=== PATIENT | male | born 1955 | race Native Hawaiian/Other Pacific Islander ===

== ENCOUNTER → 2024-04-18 | Outpatient (CLI) | payer MEDICAID ==
[~2024-04-18] MED LIST: ALLO300T2; COLC0.6T; GLIP5TAB21; INDO50CA82; LISI-285; METF-370
[2024-04-18 07:32] LABS: Alanine Aminotransferase 13 U/L (7-40); Alkaline Phosphatase 54 U/L (46-116); Anion Gap 8 (5-15); Blood Urea Nitrogen 16 mg/dL (9-23); Carbon Dioxide 28 mmol/L (20-31); Chloride 99 mmol/L (98-107); Glucose 143 mg/dL (74-106); LDL Cholesterol 80 mg/dL (< 100); Potassium 4.1 mmol/L (3.5-5.1); Sodium 135 mmol/L (136-145); Triglycerides 78 mg/dL (< 150)
[2024-04-18 07:33] LABS: Albumin 4.3 g/dL (3.2-4.8); Aspartate Aminotransferase 31 U/L (13-40); Bilirubin, Total 0.9 mg/dL (0.2-1.0); Cholesterol 127 mg/dL (< 200); Creatine Kinase IFCC 385 U/L (46-171); HDL Cholesterol 38 mg/dL (40-59); Total Protein 6.9 g/dL (5.7-8.2)
[2024-04-18 08:36] LABS: Uric Acid 5.4 mg/dL (3.7-9.2)
== END | disposition home or self-care (01) ==
LOC: LAB 06:17
PROVIDERS: ATTEND Internal Medicine
DX: E11.69 Type 2 diabetes mellitus with other specified complication (principal); E78.5 Hyperlipidemia, unspecified; M10.9 Gout, unspecified; E03.9 Hypothyroidism, unspecified
CPT/HCPCS: 36415; 80053; 80061; 82043; 82550; 83036; 84436; 84443; 84550

== ENCOUNTER → 2024-09-07 | Outpatient (CLI) | payer MEDICAID ==
[2024-09-07 07:23] LABS: Creatinine, Urine 43.39 mg/dL (30.0-125.0)
[2024-09-07 07:27] LABS: Alanine Aminotransferase 16 U/L (7-40); Albumin 4.6 g/dL (3.2-4.8); Alkaline Phosphatase 69 U/L (46-116); Anion Gap 10 (5-15); Aspartate Aminotransferase 24 U/L (13-40); BUN/Creatinine Ratio 15.4 (10.0-20.0); Blood Urea Nitrogen 16 mg/dL (9-23); Calcium 9.8 mg/dL (8.7-10.4); Carbon Dioxide 26 mmol/L (20-31); Cholesterol 126 mg/dL (< 200); LDL Cholesterol 76 mg/dL (< 100); Potassium 3.6 mmol/L (3.5-5.1); Total Protein 7.3 g/dL (5.7-8.2); Triglycerides 40 mg/dL (< 150)
[2024-09-07 07:28] LABS: HDL Cholesterol 43 mg/dL (40-59)
[2024-09-07 07:30] LABS: Bilirubin, Total 1.3 mg/dL (0.2-1.0); Chloride 96 mmol/L (98-107); Glucose 137 mg/dL (74-106); Sodium 132 mmol/L (136-145)
[2024-09-07 07:43] LABS: Uric Acid 3.4 mg/dL (3.7-9.2)
== END | disposition home or self-care (01) ==
LOC: LAB 06:13
PROVIDERS: ATTEND Internal Medicine
DX: E11.69 Type 2 diabetes mellitus with other specified complication (principal); E78.5 Hyperlipidemia, unspecified; E03.5 Myxedema coma; M10.9 Gout, unspecified
CPT/HCPCS: 36415; 80053; 80061; 82043; 82570; 83036; 84436; 84443; 84480; 84550

== ENCOUNTER → 2024-09-27 | Outpatient (CLI) | payer MEDICAID | END | disposition home or self-care (01) | LOC: LAB 12:16 | PROVIDERS: ATTEND Internal Medicine | DX: J44.1 Chronic obstructive pulmonary disease with (acute) exacerbation (principal) | CPT/HCPCS: 87081 ==

== ENCOUNTER 2024-11-16 06:03 | Outpatient (CLI) | payer MEDICAID ==
[2024-11-16 06:18] LABS: Urine Bacteria None Seen /hpf (None Seen)
[2024-11-16 06:36] LABS: Urine Blood Negative /uL (Negative); Urine Clarity Clear (Clear); Urine Color Light-Yellow (Yellow); Urine Hyaline Cast FEW /lpf (0 - 2); Urine Protein, UAD 2+ (Negative); Urine Squamous Epithelial Cell None Seen /hpf (<5); Urine Urobilinogen Normal (Negative); Urine WBC 1 /HPF (0-3); Urine pH 7.5 (5.0-9.0)
[2024-11-16 07:10] LABS: Alanine Aminotransferase 16 U/L (7-40); Albumin 4.4 g/dL (3.2-4.8); Alkaline Phosphatase 44 U/L (46-116); Anion Gap 9 (5-15); Aspartate Aminotransferase 41 U/L (<34); BUN/Creatinine Ratio 15.5 (10.0-20.0); Bilirubin, Total 1.1 mg/dL (0.2-1.0); Blood Urea Nitrogen 18 mg/dL (9-23); Carbon Dioxide 28 mmol/L (20-31); Chloride 95 mmol/L (98-107); Glucose 177 mg/dL (74-106); Potassium 3.5 mmol/L (3.5-5.1); Sodium 132 mmol/L (136-145); Total Protein 6.6 g/dL (5.7-8.2)
== END 2024-11-16 17:00 | disposition home or self-care (01) ==
LOC: LAB 06:03
PROVIDERS: ATTEND Internal Medicine
DX: E11.69 Type 2 diabetes mellitus with other specified complication (principal); N39.0 Urinary tract infection, site not specified
CPT/HCPCS: 36415; 80053; 81001; 82043; 87086

== ENCOUNTER 2025-01-25 06:47 | Outpatient (CLI) | payer MEDICAID ==
[2025-01-25 07:42] LABS: Alanine Aminotransferase 14 U/L (7-40); Albumin 4.2 g/dL (3.2-4.8); Alkaline Phosphatase 57 U/L (46-116); Anion Gap 11 (5-15); BUN/Creatinine Ratio 14.2 (10.0-20.0); Bilirubin, Total 0.9 mg/dL (0.2-1.0); Blood Urea Nitrogen 17 mg/dL (9-23); Calcium 9.0 mg/dL (8.7-10.4); Carbon Dioxide 25 mmol/L (20-31); Cholesterol 107 mg/dL (< 200); Potassium 3.8 mmol/L (3.5-5.1); Total Protein 6.9 g/dL (5.7-8.2); Triglycerides 92 mg/dL (< 150)
[2025-01-25 07:51] LABS: Chloride 96 mmol/L (98-107); Creatine Kinase IFCC 415 U/L (46-171); Glucose 140 mg/dL (74-106); HDL Cholesterol 33 mg/dL (40-59); Sodium 132 mmol/L (136-145)
== END 2025-01-25 17:00 | disposition home or self-care (01) ==
LOC: LAB 06:47
PROVIDERS: ATTEND Internal Medicine
DX: E11.69 Type 2 diabetes mellitus with other specified complication (principal); E78.5 Hyperlipidemia, unspecified
CPT/HCPCS: 36415; 80053; 80061; 82043; 82550; 83036

== ENCOUNTER 2025-02-07 12:16 | Outpatient (CLI) | payer MEDICAID ==
[2025-02-07 13:44] LABS: Urine Protein, UAD Negative (Negative)
== END 2025-02-07 17:00 | disposition home or self-care (01) ==
LOC: LAB 12:16
PROVIDERS: ATTEND Internal Medicine
DX: R80.9 Proteinuria, unspecified (principal)
CPT/HCPCS: 81001; 87086

== ENCOUNTER 2025-04-13 06:05 | Outpatient (CLI) | payer MEDICAID ==
[2025-04-13 07:06] LABS: Urine Protein, UAD 1+ (Negative)
[2025-04-13 07:12] LABS: Alanine Aminotransferase 12 U/L (7-40); Albumin 4.0 g/dL (3.2-4.8); Alkaline Phosphatase 58 U/L (46-116); Anion Gap 8 (5-15); BUN/Creatinine Ratio 15.3 (10.0-20.0); Blood Urea Nitrogen 18 mg/dL (9-23); Calcium 9.2 mg/dL (8.7-10.4); Carbon Dioxide 28 mmol/L (20-31); Potassium 3.6 mmol/L (3.5-5.1); Total Protein 6.8 g/dL (5.7-8.2); Uric Acid 4.7 mg/dL (3.7-9.2)
[2025-04-13 07:13] LABS: Bilirubin, Total 1.0 mg/dL (0.2-1.0)
[2025-04-13 07:15] LABS: Chloride 96 mmol/L (98-107); Glucose 176 mg/dL (74-106); Sodium 132 mmol/L (136-145)
[2025-04-13 12:42] LABS: Triglycerides 54 mg/dL (< 150)
[2025-04-13 12:44] LABS: Cholesterol 120 mg/dL (< 200)
[2025-04-13 12:58] LABS: Creatine Kinase IFCC 342 U/L (46-171); HDL Cholesterol 37 mg/dL (40-59)
== END 2025-04-13 17:00 | disposition home or self-care (01) ==
LOC: LAB 06:05
PROVIDERS: ATTEND Internal Medicine
DX: E11.69 Type 2 diabetes mellitus with other specified complication (principal); E78.5 Hyperlipidemia, unspecified; R80.9 Proteinuria, unspecified; M10.9 Gout, unspecified
CPT/HCPCS: 36415; 80053; 80061; 81001; 82043; 82550; 83036; 84550; 87086